=== PATIENT | male | born 1950 | race Caucasian/White ===

== ENCOUNTER 2018-04-01 14:46 | Outpatient (CLI) | payer OTHER ==
--- NOTE | 2018-04-01 15:10 | DI ---
EXAM: Two views of the chest. History: Acute bronchitis. Comparison: Chest radiograph 11/24/2016 Findings: Heart size is within normal limits. There is probable bronchial wall thickening. No cons olidated pneumonia. No appreciable pleural fluid and no pneumothorax. No acute osseous abnormalitie s. Postsurgical changes of the lumbar spine. Calcified granulomas again seen within the thorax. Impression: Probable bronchial wall thickening but no consolidated pneumonia.
== END 2018-04-01 14:47 | disposition home or self-care (01) ==
LOC: RAD 14:46
PROVIDERS: ATTEND Physician Assistant
DX: J20.9 Acute bronchitis, unspecified (principal)